=== PATIENT | male | born 1965 | race Caucasian/White ===

== ENCOUNTER 2019-01-06 14:11 | Outpatient (CLI) | payer OTHER ==
[2019-01-06 14:26] LABS: eGFR (Non-African) 57
[2019-01-06 14:49] LABS: BASOPHILS % 0.5 % (0.0-1.5); NEUTROPHILS # 5.9 # k/uL (1.4-7.7)
== END 2019-01-06 14:13 ==
LOC: LABRHC 14:11
PROVIDERS: ATTEND Family Medicine
DX: R10.32 Left lower quadrant pain (principal)
CPT/HCPCS: 36415; 80053; 85025